=== PATIENT | female | born 1970 | race Caucasian/White ===

== ENCOUNTER 2018-01-26 14:24 | Emergency (ER) | payer BC ==
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
[2018-01-26 16:08] LABS: ABS Basophils 0.1 10^3/ul (0-0.2); ABS Eosinophils 0.1 10^3/ul (0-0.6); ABS Lymphocytes 1.7 10^3/ul (1.0-4.8); ABS Monocytes 0.6 10^3/ul (0-0.8); ABS Neutrophils 10.3 10^3/ul (1.5-7.7); ABS Nucleated RBC 0 10^3/ul; Eosinophil % 0.4 % (0-6); Hematocrit 41 % (35-47); Hemoglobin 13.7 g/dl (12.0-16.0); Mean Corpuscular HGB Conc 34 g/dl (31-36); Mean Corpuscular Hemoglobin 31 pg (27-31); Mean Corpuscular Volume 91 fL (80-97); Mean Platelet Volume 8.4 um3 (7.4-10.4); Nucleated Red Blood Cells % 0; Platelet Count 246 10^3/ul (150-450); Red Blood Count 4.47 10^6/ul (4.00-5.40); Red Cell Distribution Width 14 % (10.5-15); White Blood Count 12.7 10^3/ul (3.5-10.8)
[2018-01-26 16:14] LABS: INR 0.87 (0.77-1.02)
[2018-01-26 16:26] LABS: EGFR Non-African American 74.4 (>60)
[2018-01-26] MEDS ORDERED: Iohexol 300* (CONTRAST) 10 ML SDV IV ONE (16:28)
[2018-01-26] MEDS ORDERED: LORazepam INJ* 2 MG/ML 1 ML VIAL IV PUSH ONE (16:50)
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
--- NOTE | 2018-01-26 17:34 | RAD ---
INDICATION: Right leg pain COMPARISON: None TECHNIQUE: AP, lateral, and oblique views were obtained. FINDINGS: There is no acute fracture. There is mild soft tissue edema along the anterior proximal tibia IMPRESSION: NO ACUTE FRACTURE
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
[2018-01-26] MEDS ORDERED: Cyclobenzaprine TAB* 10 MG PO ONE (19:15)
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
[2018-01-26 19:52] VITALS: BP 132/80
== END 2018-01-26 19:45 | disposition home or self-care (01) ==
LOC: ED 14:24
DX: S69.92XA Unspecified injury of left wrist, hand and finger(s), initial encounter (principal); V43.52XA Car driver injured in collision with other type car in traffic accident, initial encounter; Y92.410 Unspecified street and highway as the place of occurrence of the external cause; R51 Headache; M54.2 Cervicalgia; R07.89 Other chest pain; F41.9 Anxiety disorder, unspecified; Z79.899 Other long term (current) drug therapy; Z87.891 Personal history of nicotine dependence
CPT/HCPCS: 36415; 70450; 71260; 72125; 73140; 74177; 80053; 83605; 84702; 85025; 85610; 86850; 86900; 86901; 96374; 99283; A9270-GY; J2060; Q9967